=== PATIENT | male | born 1950 | race Caucasian/White ===

== ENCOUNTER 2024-07-17 18:34 | Emergency (ER) | payer MEDICARE, SELFPAY ==
[2024-07-17 18:37] VITALS: BP 162/93; PULSE 68; RESP 18; TEMP 36.3; O2SAT 96
[2024-07-17 20:58] VITALS: BMI 31.1
[2024-07-17 21:00] VITALS: BP 151/85; PULSE 55
--- NOTE | 2024-07-17 21:44 | EX.ED.VIS.EY ---
HPI History of Present Illness Chief Complaint: Vision Prob Informant: patient Narrative Narrative: Very pleasant 74-year-old male presenting to the emergency room for chief complaint of change in vision. Patient states that on Sunday he had an increase in his floaters of his right eye. He states that he has had floaters in the eye for years and he sees his hatchery man for them and wears glasses. He states he was driving to [place] but then yesterday and today he felt that there was more cloudiness in the vision particularly in the center vision. He denies any pain. There is no black or loss of vision. No curtain dropping. No redness of the eye. He called his primary care doctor on his drive home and was advised to come to the emergency room. [facility] Medical History HTN (hypertension) Home Medications ?Medication ?Instructions ?Recorded ?Last Taken ?Type amlodipine 5 mg tablet 5 mg PO DAILY 07/17/24 Unknown History aspirin 81 mg capsule 81 mg PO DAILY 07/17/24 Unknown History bupropion HCl 75 mg tablet 75 mg PO BID 07/17/24 Unknown History cetirizine 10 mg tablet (24Hour 10 mg PO DAILY 07/17/24 Unknown History Allergy) desvenlafaxine succinate 25 mg 25 mg PO QODAY 07/17/24 Unknown History tablet,extended release 24 hr ezetimibe 10 mg tablet 10 mg PO DAILY 07/17/24 Unknown History multivitamin (Daily Multi-Vitamin 1 tab PO DAILY 07/17/24 Unknown History tablet) telmisartan 80 1 tab PO DAILY 07/17/24 Unknown History mg-hydrochlorothiazide 12.5 mg tablet Allergy/AdvReac Type Severity Reaction Status Date / Time No Known Allergies Allergy Verified 07/17/24 18:37 Social History Smoking Status: Never smoker ROS ROS ED Constitutional Constitutional ED: Denies chills, fever(s) or weight loss Eyes Eyes: Reports blurry vision and change in vision; Denies diplopia ENT ENT ED: Denies ear pain, rhinorrhea or sore throat Cardiovascular Cardiovascular: Denies chest pain, orthopnea, palpitations or racing heartbeat Respiratory/Chest Respiratory/Chest: Denies cough, dyspnea or orthopnea Gastrointestinal Gastrointestinal: Denies abdominal pain, diarrhea, nausea or vomiting Genitourinary Genitourinary ED: Denies dysuria, hematuria or urinary frequency Musculoskeletal Musculoskeletal: Denies arthralgias or myalgias Integumentary Denies abscess or rash Neurologic Neurologic: Denies headache(s) or weakness Psychiatric Psychiatric: Denies anxiety, depression, suicidal ideation or suicidal thoughts Endocrine Endocrinology: Denies polydipsia, polyphagia or polyuria Allergic/Immunologic Allergic/Immunologic ED: Denies mouth swelling, tongue swelling or urticaria EXAM Physical Exam Const Vital Signs: 07/17/24 18:37 07/17/24 21:00 Temperature 97.3 F L Temperature Source Temporal Pulse Rate 68 55 L Respiratory Rate 18 Blood Pressure 162/93 H 151/85 H Blood Pressure Mean 116 107 Pulse Ox 96 Oxygen Delivery Method Room Air Positive well nourished and well developed General Appearance ED: well developed and NAD HEENT Reports normocephalic, head/scalp atraumatic and moist mucous membranes HEENT Narrative: The eyes do not appear injected. There is no hyphema. Extraocular motions are intact. Normal accommodation. Anterior chamber deep and quiet. I do not see an obvious retinal detachment on funduscopic exam (with dilatation). I do not appreciate papilledema. Eyes PERRL and EOMs intact bilaterally Neck no lymphadenopathy, supple and no JVD Resp normal respiratory effort and clear to auscultation bilaterally Cardio regular rate, regular rhythm and no murmurs GI normal to inspection, nondistended, normoactive bowel sounds and non-tender Palpation: soft Back/Spine no CVA tenderness and normal ROM Extremity normal to inspection General Extremety ED: Negative for edema General Extremity: Negative for edema Neuro oriented x3 and CN's II-XII intact bilaterally Sensorium / Orientation: alert Motor Exam: strength 5/5 throughout Psych mental status grossly normal Mood & Affect: Negative for depressed or tearful Skin no rashes or lesions noted and no wounds MDM MDM MDM Narrative Medical decision making narrative: Differential diagnosis includes but not limited to floaters or flashers increased intraocular pressure papilledema retinal detachment Patient's pressures are 24 28 26 of the right eye. Left eye 28 25 25. Patient was discussed with on-call operations vice president Dr. Breaux. Patient will go to the office tomorrow morning at 08 and be seen. He notes understanding the plan is comfortable with it History & Record Review Discussion w/independent historian: Patient and Significant other Management Discussion w/another healthcare provider: Brass Instrument Repair Technician (Dr Breaux (ophthalmology)) Discharge Plan Triage Chief Complaint: Vision Prob ED Provider: Neno Gonsalez Dx/Rx/DC Orders Clinical Impression: Floaters in visual field Instructions: Treating Flashes and Floaters Prescriptions: No Action telmisartan-hydrochlorothiazid 80-12.5 mg tablet 1 tab PO DAILY amlodipine 5 mg tablet 5 mg PO DAILY bupropion HCl 75 mg tablet 75 mg PO BID desvenlafaxine succinate 25 mg tablet extended release 24 hr 25 mg PO QODAY ezetimibe 10 mg tablet 10 mg PO DAILY cetirizine [24Hour Allergy] 10 mg tablet 10 mg PO DAILY aspirin 81 mg capsule 81 mg PO DAILY multivitamin [Daily Multi-Vitamin] Tablet 1 tab PO DAILY Primary Care Provider: Vivi Leary Referrals: Scooby Breaux MD [Med Staff - Active Staff] - As soon as possible Vivi Leary MD [Primary Care Provider] - Activity Restrictions/Additional Instructions: Tomorrow morning at 0800 hrs. please go to [facility] and let them know at the java front end web developer that you are seen in the emergency department last night and that you are to be seen this morning. Print Language: Maltese Disposition Disposition: Home, Self Care Discharge Date/Time: 07/17/24 22:36
[2024-07-17] MEDS: Cyclopentolate 1% 2 ML Bottle 2 DRP RIGHT EYE (21:59)
== END 2024-07-17 22:36 | disposition home or self-care (01) ==
LOC: ED 22:36
PROVIDERS: Emergency Provider Emergency Medicine; PCP Internal Medicine; Visit Provider Emergency Medicine
DX: H43.391 Other vitreous opacities, right eye (principal); I10 Essential (primary) hypertension; Z79.82 Long term (current) use of aspirin; Z79.899 Other long term (current) drug therapy
CPT/HCPCS: 99283